=== PATIENT | male | born 1995 | race Caucasian/White ===

== ENCOUNTER 2018-06-17 09:12 | Emergency (ER) | payer MEDICAID ==
[~2018-06-17] VITALS: Wt 70.0 kg
[2018-06-17 09:14] VITALS: BP 141/83; PULSE 79; RESP 18
[2018-06-17] MEDS ORDERED: TETRACAINE 0.5% 4 ML OPH LEFT EYE ONE (09:30)
[2018-06-17] MEDS ORDERED: FLUORESCEIN STRIP LEFT EYE ONE (10:30)
--- NOTE | 2018-06-17 10:34 | ERD ---
ER Documentation Chief Complaint Chief Complaint left eye pain and redness on sclera since yesterday, no trauma, vision ok HPI This is a 22-year-old male with a nonsignificant past medical history presents ED with complaints of left eye injection and redness since this morning. Patient admits to some mild pain associated with the redness. Patient denies any trauma. Denies foreign body sensation, blurry vision, changes in vision, fall or injury, fever, chills, coughing or sneezing very hard, and all other symptoms. No known drug allergies. Does not wear contact lenses or glasses. ROS All systems reviewed and are negative except as per history of present illness. PMhx/Soc Medical and Surgical Hx: pt denies Medical Hx, pt denies Surgical Hx Hx Alcohol Use: No Hx Substance Use: No Hx Tobacco Use: No Smoking Status: Never smoker Physical Exam Vitals Vital Signs Date Temp Pulse Resp B/P (MAP) Pulse Ox O2 O2 Flow FiO2 Time Delivery Rate 06/17/18 97.9 79 18 141/83 98 09:14 (102) Physical Exam Const: No acute distress Head: Atraumatic Eyes: There is a subconjunctival hemorrhage on the sclera of patient's left eye, EOMs intact bilaterally x6 with no pain, no foreign body identified, Visual Lay: Intact in all four quadrants bilaterally Lac ducts/glands: No swelling Lids w/ evertion: Normal, no foreign body Conj/Energy: Clear, negative Fluorescein/Usha's ENT: Normal External Ears, Nose and Mouth. Neck: Full range of motion. No meningismus. Resp: Clear to auscultation bilaterally Cardio: Regular rate and rhythm, no murmurs Ext: No cyanosis, or edema Neur: Awake and alert Psych: Normal Mood and Affect Results 24 hrs Current Medications Medications Dose Sig/Theresa Start Time Status Last (Trade) Ordered Route PRN Stop Time Admin Dose Reason Admin Tetracaine 1 drop ONCE ONCE 06/17/18 DC HCl LEFT EYE 09:30 (Tetracaine 06/17/18 09:31 0.5% Steri-Unit Katlyn) Fluorescein 1 strip ONCE ONCE 06/17/18 Sodium LEFT EYE 10:30 ([id number] 06/17/18 10:31 p) Procedures/MDM ER COURSE: The patient was stable throughout ED course. I kept the patient and/or family informed of laboratory and diagnostic imaging results throughout the emergency room course. The patient was promptly evaluated and a treatment plan was devised based on H&P and other data. This plan was discussed with the patient who agreed and had no further questions or concerns prior to discharge. MEDICAL DECISION MAKING: This is a 22-year-old male who presents to ED with a nontraumatic subconjunctival hemorrhage of the left eye since this morning. fluroescene stain was performed and there is no uptake. Suspicion for orbital cellulitis is low. Patient does not have any eye pain or painful extraocular movements and there is no surrounding erythema. Patient is afebrile and extremely well- appearing. Patient has denied any trauma to the eye and any vision loss or vision changes. No evidence of globe perforation, acute angle glaucoma, orbital cellulitis, periorbital cellulitis or other ophthalmic emergencies. pt is to follow-up with her primary care doctor within 1-2 days. return to ER sooner if symptoms worsen. My medical decision making shared with the patient she understands and agrees with plan. DISPOSITION PLAN: We discussed follow up with the patient's primary care doctor within 24 to 48 hours. Patient counseled regarding my diagnostic impression and care plan. Prior to discharge all questions answered. Pt agrees with treatment plan and understands strict return precautions. Precautionary instructions provided including instructions to return to the ER if not improving or for any worsening or changing symptoms or concerns. ExitCare instructions provided. Prior to discharge, patients vital signs have been reviewed SPECIALIST FOLLOW UP RECOMMENDED: None Patient has been advised to follow up with primary care in 1-2 days. Disclaimer: Inadvertent spelling and grammatical errors are likely due to EHR/dictation software use and do not reflect on the overall quality of patient care. Also, please note that the electronic time recorded on this note does not necessarily reflect the actual time of the patient encounter. Departure Diagnosis: Primary Impression: Subconjunctival hemorrhage of left eye Condition: Stable Patient Instructions: Subconjunctival Hemorrhage Referrals: COMMUNITY CLINICS YOU HAVE RECEIVED A MEDICAL SCREENING EXAM AND THE RESULTS INDICATE THAT YOU DO NOT HAVE A CONDITION THAT REQUIRES URGENT TREATMENT IN THE EMERGENCY DEPARTMENT. FURTHER EVALUATION AND TREATMENT OF YOUR CONDITION CAN WAIT UNTIL YOU ARE SEEN IN YOUR DOCTORS OFFICE WITHIN THE NEXT 1-2 DAYS. IT IS YOUR RESPONSIBILITY TO MAKE AN APPOINTMENT FOR FOLOW-UP CARE. IF YOU HAVE A PRIMARY DOCTOR --you should call your primary doctor and schedule an appointment IF YOU DO NOT HAVE A PRIMARY DOCTOR YOU CAN CALL OUR PHYSICIAN REFERRAL HOTLINE AT IF YOU CAN NOT AFFORD TO SEE A PHYSICIAN YOU CAN CHOSE FROM THE FOLLOWING [facility] [address] [facility] [address] [facility] [address] [facility] [address] [facility] [address] [facility]. [facility] [address] [facility] Hours: Mon - Fri 9:00 AM - 5:00 PM Additional Instructions: Patient advised to return to the ED immediately for new or worsening symptoms. Patient advised to follow up with primary care provider in the next 24-48 hours. Patient verbalized understanding and agrees with treatment plan and course of action. If patient has no primary care they may follow up with one of the community clinics listed on the following page or one of the options listed below [facility] + [facility] [address] [place] [address] or [facility] [address] [place] [address] or [facility] [address] [place] [address] ELICEO ÁLVAREZ PA-C Jun 17, 2018 10:34
== END 2018-06-17 10:53 | disposition home or self-care (01) ==
LOC: FTE 09:12
DX: H11.32 Conjunctival hemorrhage, left eye (principal)
CPT/HCPCS: Z7502; Z7610; 99283

== ENCOUNTER 2018-09-16 09:57 | Emergency (ER) | payer MEDICAID ==
[~2018-09-16] VITALS: Ht 165.1 cm; Wt 70.6 kg
[2018-09-16 09:59] VITALS: BP 110/69; PULSE 58; RESP 16; Ht 165.1 cm; Wt 70.6 kg
[2018-09-16] MEDS ORDERED: IBUPROFEN 800 MG TAB PO ONE (10:30)
[2018-09-16] MEDS ORDERED: IBUP-1542 PO (11:06)
[2018-09-16] MEDS ORDERED: TAMS-14 PO (11:06)
[2018-09-16] MEDS ORDERED: HYDR-4011 PO (11:07)
--- NOTE | 2018-09-16 11:08 | ERD ---
ER Documentation Chief Complaint Chief Complaint back/flank pain with pain with urination x 3 days HPI 23-year-old male presents the ED complaining of back pain and pain with urination x3 days. He reports that the back pain is an aching 8 out of 10 pain that does not radiate anywhere and is located on his right flank. He states that the pain is worse with movement better with rest. He denies any injuries, falls, accidents. He states that he experiences pain with his urination only but denies any blood in his urine. He denies any previous incidents of similar events. He has not taken any medication for symptoms yet. He denies any fevers, saddle anesthesia, loss of bowel or bladder function. He denies any new sexual partners or concerns of STIs at the moment. ROS All systems reviewed and are negative except as per history of present illness. Medications Home Meds Active Scripts Hydrocodone/Acetaminophen ([place] 5-325 Tablet) 1 Each Tablet, 1 TAB PO Q6H PRN for PAIN, #7 TAB Prov:CASSANDRA FREITAS PA-C 09/16/18 Ibuprofen* (Motrin*) 600 Mg Tab, 600 MG PO Q6H PRN for PAIN AND OR ELEVATED TEMP, #30 TAB Prov:CASSANDRA FREITAS PA-C 09/16/18 Tamsulosin Hcl* (Flomax*) 0.4 Mg Cap.er.24h, 0.4 MG PO BID, #30 CAP Prov:CASSANDRA FREITAS PA-C 09/16/18 Allergies Allergies: Coded Allergies: No Known Allergy (Unverified , 09/16/18) PMhx/Soc Medical and Surgical Hx: pt denies Medical Hx, pt denies Surgical Hx Hx Alcohol Use: No Hx Substance Use: No Hx Tobacco Use: No Smoking Status: Never smoker Physical Exam Vitals Vital Signs Date Temp Pulse Resp B/P (MAP) Pulse Ox O2 O2 Flow FiO2 Time Delivery Rate 09/16/18 97.6 58 16 110/69 99 09:59 (83) Physical Exam Const: No acute distress Head: Atraumatic Eyes: Normal Conjunctiva ENT: Normal External Ears, Nose and Mouth. Neck: Full range of motion. Resp: Clear to auscultation bilaterally Cardio: Regular rate and rhythm, Abd: Soft, non tender, non distended. Skin: No petechiae or rashes Back: Tenderness to the right flank Ext: No cyanosis, or edema Neur: Awake and alert Psych: Normal Mood and Affect Results 24 hrs Laboratory Tests Test 09/16/18 10:30 Urine Color YELLOW Urine Clarity CLEAR Urine pH 7.0 Urine Specific [place] 1.020 Urine Ketones NEGATIVE mg/dL Urine Nitrite NEGATIVE mg/dL Urine Bilirubin NEGATIVE mg/dL Urine Urobilinogen NEGATIVE mg/dL Urine Leukocyte Esterase NEGATIVE Nancy/ul Urine Hemoglobin NEGATIVE mg/dL Urine Glucose NEGATIVE mg/dL Urine Total Protein NEGATIVE mg/dl Current Medications Medications Dose Sig/Theresa Start Time Status Last (Trade) Ordered Route PRN Stop Time Admin Dose Reason Admin Ibuprofen 800 mg ONCE ONCE 09/16/18 DC 09/16/18 (Motrin) PO 10:30 10:31 09/16/18 10:31 Procedures/MDM ED COURSE: The patient was stable throughout ED course. I kept the patient informed of laboratory and diagnostic imaging results throughout the ED course. DIAGNOSTIC IMAGING: Read by radiologist. PROCEDURE: CT abdomen and pelvis without contrast. CLINICAL INDICATION: Urolithiasis TECHNIQUE: CT scan of the abdomen and pelvis without oral contrast was performed and is reconstructed at 2.5 mm contiguous axial intervals from the dome of the diaphragm to the inferior pubic rami.. The patient was scanned without intravenous contrast. Sagittal and coronal reformatted images were obtained from the axial source images. The calculated radiation dose measures 383 mGy centimeters. The CTDI measures 6.6 mGy. Individualized dose optimization technique was used for the performance of this exam. This included 1. Automated exposure control. 2. Adjustment of the mA and / or kV according to the patient's size. 3. Use of iterative reconstructed technique. DICOM images are available. COMPARISON: None. FINDINGS: The lung bases are clear of any infiltrate or nodule. No effusion is seen. The liver is of normal size, contour and attenuation with no mass or ductal dilatation. No gallstones are visualized. No splenic, adrenal or pancreatic abnormalities present. Kidneys are of normal size and contour. No hydronephrosis or mass Is seen. There is a 2 mm nonobstructing stone in the mid to lower pole of the right kidney. Ureters are of normal course and caliber with no stone. No bladder mass or stone is present. Prostate and seminal vesicles appear normal. There is no aneurysm. No adenopathy is present. No bowel mass or obstruction is present. The appendix is normal. No phlegmon, ascites or pneumoperitoneum is visualized. The osseous structures are intact. IMPRESSION: No evidence of obstructive uropathy, diverticulitis or appendicitis. 2 mm calculus right kidney. .Jayden Mccann MD, MD Date Time Electronically viewed and signed by .Jayden Mccann MD, on 09/16/2018 10:43 MEDICATIONS GIVEN: None. MEDICAL DECISION MAKING: Patient is a 23-year-old male complaining about right flank pain and burning sensation when he urinates x3 days. He denies history of kidney stones. He denies any acute behaviors and states that he has only one sexual partner in which he is little to. He has significant tenderness to the right flank. Urinalysis shows no blood in his urine however CT scan shows a 2 mm renal stone in the right kidney without obstruction or hydronephrosis. At this time I have no concerns for obstruction, hydronephrosis, musculoskeletal injuries, STIs. Patient was given Flomax and pain management for outpatient treatment told to follow-up with urologist the next day or 2. Vital signs were reviewed. Patient is afebrile. Patient was not hypoxic. Patient was hemodynamically stable. PRESCRIPTION: [place], Flomax, ibuprofen DISCHARGE: At this time, patient is stable for discharge and outpatient management. I have instructed the patient to follow-up with his/her primary care physician in 1-2 days. I have discussed with the patient the possibility of needing to see a specialist for further workup and imaging studies if symptoms persist. I have instructed the patient to promptly return to the ER for any new or worsening sym ptoms including increased pain, fever, nausea, vomiting, weakness or LOC. The patient and/or family expressed understanding of and agreement with this plan. All questions were answered. Home care instructions were provided. Disclaimer: Inadvertent spelling and grammatical errors are likely due to EHR/dictation software use and do not reflect on the overall quality of patient care. Also, please note that the electronic time recorded on this note does not necessarily reflect the actual time of the patient encounter. Departure Diagnosis: Primary Impression: Renal calculi Condition: Fair Patient Instructions: Preventing Kidney Stones Referrals: [facility] [place] [place] YOU HAVE RECEIVED A MEDICAL SCREENING EXAM AND THE RESULTS INDICATE THAT YOU DO NOT HAVE A CONDITION THAT REQUIRES URGENT TREATMENT IN THE EMERGENCY DEPARTMENT. FURTHER EVALUATION AND TREATMENT OF YOUR CONDITION CAN WAIT UNTIL YOU ARE SEEN IN YOUR DOCTORS OFFICE WITHIN THE NEXT 1-2 DAYS. IT IS YOUR RESPONSIBILITY TO MAKE AN APPOINTMENT FOR FOLOW-UP CARE. IF YOU HAVE A PRIMARY DOCTOR --you should call your primary doctor and schedule an appointment IF YOU DO NOT HAVE A PRIMARY DOCTOR YOU CAN CALL OUR PHYSICIAN REFERRAL HOTLINE AT IF YOU CAN NOT AFFORD TO SEE A PHYSICIAN YOU CAN CHOSE FROM THE FOLLOWING [facility] [address] [facility]. [facility] [address] [facility] [address] [facility] [address] [facility] [address] [facility]. [facility]. [address] [facility]. [facility] YOU HAVE RECEIVED A MEDICAL SCREENING EXAM AND THE RESULTS INDICATE THAT YOU DO NOT HAVE A CONDITION THAT REQUIRES URGENT TREATMENT IN THE EMERGENCY DEPARTMENT. FURTHER EVALUATION AND TREATMENT OF YOUR CONDITION CAN WAIT UNTIL YOU ARE SEEN IN YOUR DOCTORS OFFICE WITHIN THE NEXT 1-2 DAYS. IT IS YOUR RESPONSIBILITY TO MAKE AN APPOINTMENT FOR FOLOW-UP CARE. IF YOU HAVE A PRIMARY DOCTOR --you should call your primary doctor and schedule and appointment IF YOU DO NOT HAVE A PRIMARY DOCTOR YOU CAN CALL OUR PHYSICIAN REFERRAL HOTLINE AT . IF YOU CAN NOT AFFORD TO SEE A PHYSICIAN YOU CAN CHOSE FROM THE FOLLOWING [facility]: [facility] [address] [place] [address] [facility] [address] [place] [address] [facility] [address] [place] [address] Additional Instructions: Follow-up with urology in 1 or 2 days. Drink plenty of fluids Call your primary care doctor TOMORROW for an appointment during the next 1-2 days.See the doctor sooner or return here if your condition worsens before your appointment time. CASSANDRA FREITAS PA-C Sep 16, 2018 11:08
== END 2018-09-16 11:28 | disposition home or self-care (01) ==
LOC: FTE 09:57
DX: N20.0 Calculus of kidney (principal)
CPT/HCPCS: 74176; 81003; Z7502; Z7610

== ENCOUNTER 2018-10-17 17:29 | Emergency (ER) | payer MEDICAID ==
[~2018-10-17] VITALS: Ht 157.5 cm; Wt 89.0 kg
[~2018-10-17 17:29] MED LIST: HYDR-4011 PO; IBUP-1542 PO; NAPR-985 PO; TAMS-14 PO
[2018-10-17 17:34] VITALS: Ht 157.5 cm; Wt 89.0 kg
[2018-10-17] MEDS ORDERED: KETOROLAC 30 MG INJ IM STA (18:40)
--- NOTE | 2018-10-17 18:42 | ERD ---
ER Documentation Chief Complaint Chief Complaint found bed bugs , wants urine test HPI Is a 23-year-old male patient who presents to the emergency room with multiple concerns. States 2 weeks ago he thinks he had bedbugs in his bed, however he has not had any recent travel, no hotel stays, no visitors staying in his bed, denies any actual insect bites on his skin only states he saw small black dots in his bed. He does not need any treatment as there are no lesions, no itching and he is denying specific concerns about the bedbugs. He is also requesting a urine test as he has history of kidney stones and states he is having right- sided flank pain that feels similar to when he had kidney stones in the past. No dysuria, no abdominal pain, no fever, no hematuria. Patient has obvious puncture wound in left AC with dried tape that he states was an [facility] but patient cannot tell me why he was at the hospital or why he received an IV. Patient is alert, NAD at time of evaluation. ROS All systems reviewed and are negative except as per history of present illness. Medications Home Meds Active Scripts Naproxen* (Naprosyn*) 500 Mg Tablet, 500 MG PO BID PRN for PAIN AND/OR INFLAMMATION, #30 TAB Prov:FRANCOIS JOHNSON NURSING EDUCATOR 10/17/18 Hydrocodone/Acetaminophen ([place] 5-325 Tablet) 1 Each Tablet, 1 TAB PO Q6H PRN for PAIN, #7 TAB Prov:CASSANDRA FREITAS PA-C 09/16/18 Ibuprofen* (Motrin*) 600 Mg Tab, 600 MG PO Q6H PRN for PAIN AND OR ELEVATED TEMP, #30 TAB Prov:CASSANDRA FREITAS PA-C 09/16/18 Tamsulosin Hcl* (Flomax*) 0.4 Mg Cap.er.24h, 0.4 MG PO BID, #30 CAP Prov:CASSANDRA FREITAS PA-C 09/16/18 Allergies Allergies: Coded Allergies: No Known Allergy (Unverified , 10/17/18) PMhx/Soc Medical and Surgical Hx: pt denies Medical Hx, pt denies Surgical Hx Hx Alcohol Use: No Hx Substance Use: No Hx Tobacco Use: No Smoking Status: Never smoker FmHx Family History: No diabetes, No coronary disease, No other Physical Exam Vitals Vital Signs Date Temp Pulse Resp B/P (MAP) Pulse Ox O2 O2 Flow FiO2 Time Delivery Rate 10/17/18 97.9 56 16 120/74 100 Room Air 20:41 (89) 10/17/18 98.0 65 18 132/66 99 17:34 (88) Physical Exam Const: No acute distress Head: Atraumatic Eyes: Normal Conjunctiva, PERRL ENT: Normal External Ears, Nose and Mouth. Neck: Full range of motion. No meningismus. Resp: Clear to auscultation bilaterally Cardio: Regular rate and rhythm, no murmurs Abd: Soft, non tender, non distended. Normal bowel sounds Skin: No petechiae or rashes Back: No midline or flank tenderness, no CVT Ext: No cyanosis, or edema Neur: Awake and alert, clear speech, steady gait Psych: Normal Mood and Affect Results 24 hrs Laboratory Tests Test 10/17/18 18:57 Urine Color YELLOW Urine Clarity CLEAR Urine pH 6.0 Urine Specific [place] 1.018 Urine Ketones NEGATIVE mg/dL Urine Nitrite NEGATIVE mg/dL Urine Bilirubin NEGATIVE mg/dL Urine Urobilinogen NEGATIVE mg/dL Urine Leukocyte Esterase NEGATIVE Nancy/ul Urine Hemoglobin NEGATIVE mg/dL Urine Glucose NEGATIVE mg/dL Urine Total Protein NEGATIVE mg/dl Current Medications Medications Dose Sig/Theresa Start Time Status Last (Trade) Ordered Route PRN Stop Time Admin Dose Reason Admin Ketorolac 30 mg ONCE STAT 10/17/18 DC 10/17/18 Tromethamine IM 18:40 18:53 (Toradol) 10/17/18 18:42 Procedures/MDM PROCEDURES/MDM LAB INTERPRETATION: Negative for UTI -Medications: Toradol Patient tolerated medication well with no adverse reactions. Patient reported improvement in pain. MDM: This is a 23-year-old male patient who presents with concern for bedbugs, physical exam does not reveal any lesions or redness on skin to indicate patient has had any bites from any insects. Denies itching, no malaise. Low suspicion for patient actually having bedbugs in his bed or being exposed out to the neck bedbugs. Patient also presents with concern for right-sided flank pain,, urine test negative for hematuria or UTI, low suspicion for pyelonephritis, nephrolithiasis, appendicitis, or other life threatening etiology. Patient admits the pain may be musculoskeletal in nature and has been prescribed NSAID and instructed on use of stretching, heat, and red flag s/sx to return to ER. Pt ambulatory with steady gait, nad at time of reevaluation and discharge. DISPOSITION and PLAN: RX: Ibuprofen The patient has been discharge home to follow-up with community physician. Departure Diagnosis: Primary Impression: Musculoskeletal strain Condition: Stable FRANCOIS JOHNSON NP Oct 17, 2018 18:42
[2018-10-17 20:41] VITALS: BP 120/74; PULSE 56; RESP 16
== END 2018-10-17 20:41 | disposition home or self-care (01) ==
LOC: FTE 17:29
DX: S39.011A Strain of muscle, fascia and tendon of abdomen, initial encounter (principal); X58.XXXA Exposure to other specified factors, initial encounter; Y92.9 Unspecified place or not applicable
CPT/HCPCS: 81003; 96372; J1885; Z7502